=== PATIENT | male | born 1975 | race African-American/Black ===

== ENCOUNTER 2017-09-26 14:29 | Emergency (ER) | payer OTHER ==
[2017-09-26 14:36] VITALS: TEMP 98.5; BMI 36.9
--- NOTE | 2017-09-26 15:43 | PDOC ---
History of Present Illness - General Chief Complaint: Bleeding from Anus Stated Complaint: BLEEDING Time Seen by Provider: 09/26/17 14:44 History Source: Patient - History of Present Illness Timing/Duration: reports: resolved prior to arrival, other (this am) Past History - Past Medical History Allergies/Adverse Reactions: Allergies Allergy/AdvReac Type Severity Reaction Status Date / Time No Known Allergies Allergy Verified 09/26/17 14:34 Home Medications: Ambulatory Orders Clotrimazole/Betamethasone Dip [Lotrisone Lotion] 30 ml TP TID #1 bottle No Home Medications 0 mg PO DAILY 07/19/13 COPD: No - Suicide/Smoking/Psychosocial Hx Smoking History: Never smoked Have you smoked in the past 12 months: No Information on smoking cessation initiated: No Hx Alcohol Use: No Drug/Substance Use Hx: No Substance Use Type: None Review of Systems - Review of Systems Constitutional: No: Fever, Malaise, Weakness ABD/GI: Yes: Blood Streaked Bowels, Rectal Bleeding. No: Constipated, Diarrhea , Nausea, Vomiting, Abdominal cramping, Tarry Stools : No: Dysuria *Physical Exam - Vital Signs Last Vital Signs Temp Pulse Resp BP Pulse Ox 98.5 F 98 H 18 134/90 96 09/26/17 14:34 09/26/17 14:34 09/26/17 14:34 09/26/17 14:34 09/26/17 14:34 - Physical Exam General Appearance: Yes: Appropriately Dressed. No: Apparent Distress HEENT: positive: Normal Voice Neck: positive: Supple Respiratory/Chest: negative: Respiratory Distress Gastrointestinal/Abdominal: positive: Normal Bowel Sounds, Soft. negative: Tender Rectal Exam: positive: other (trace brown stool in vault, guaiac neg) Integumentary: positive: Dry, Warm Neurologic: positive: Fully Oriented, Alert, Normal Mood/Affect ED Treatment Course - LABORATORY CBC & Chemistry Diagram: 09/26/17 16:50 09/26/17 16:50 Medical Decision Making - Medical Decision Making 09/26/17 15:40 42-year-old male, no significant history here with 1 episode of bright blood per rectum this a.m. Patient states he noticed "a lot of blood" in toilet after having a bowel movement this morning. States he was not straining or constipated. Has not had another event since. No abdominal pain, diarrhea. nausea, vomiting or weakness. States he had a similar episode several years ago and had negative CT scan at [facility]. Has never been told he was anemic. Se exa, 1 e/o BRPR this am, since resolved Recurrent, had neg w/u in past at OSH No constipation, abd pain, n/v/f/c Not on blood thinners Sable and well maldonado w/ benign abd and giaiac neg trace brown stool in vault w/ no obvious hemorrhoid/fissure seen -will check basic labs -anticipate dc w/ GI f/u *DC/Admit/Observation/Transfer Diagnosis at time of Disposition: BRBPR (bright red blood per rectum) - Discharge Dispostion Condition at time of disposition: Good - Referrals Referrals: Hugo Bell MD [Staff Physician] - - Patient Instructions Printed Discharge Instructions: DI for Rectal Bleeding Additional Instructions: The cause of your symptoms are unclear at this time as your exam and labs were normal. However, you will need further evaluation by a director of industrial relations. Please follow-up with Dr. Bell of GI. If symptoms worsen, return to ER - Post Discharge Activity
[2017-09-26 17:01] LABS: BASO % 1.2 % (0-2.0); EOS % 3.5 % (0-4.5); HEMOGLOBIN 14.3 GM/dL (11.7-16.9); LYMPH % 32.1 % (8-40); MCH 29.5 pg (25.7-33.7); MCHC 33.3 g/dl (32.0-35.9); MEAN CELL VOLUME 88.5 fl (80-96); MONO % 8.8 % (3.8-10.2); NEUT % 54.4 % (42.8-82.8); PLATELET COUNT 232 K/MM3 (134-434); RBC 4.86 M/mm3 (4.00-5.60); RDW 13.3 % (11.9-15.9); WHITE BLOOD COUNT 4.5 K/mm3 (4.0-10.0)
[2017-09-26 17:23] LABS: ALBUMIN 3.9 g/dl (3.4-5.0); ALK PHOS 85 U/L (45-117); ANION GAP 6 (8-16); BILIRUBIN,TOTAL 0.9 mg/dL (0.2-1.0); BLOOD UREA NITROGEN 15 mg/dL (7-18); CHLORIDE 105 mmol/L (98-107); CO2 29 mmol/L (21-32); CREATININE 1.1 mg/dL (0.7-1.3); GLUCOSE,RANDOM 95 mg/dL (74-106); POTASSIUM 4.2 mmol/L (3.5-5.1); SGOT/AST 20 U/L (15-37); SGPT/ALT 30 U/L (12-78); SODIUM 140 mmol/L (136-145)
[2017-09-26 17:52] VITALS: BP 135/79; PULSE 83
== END 2017-09-26 17:49 | disposition home or self-care (01) ==
LOC: JER 14:29
DX: K62.5 Hemorrhage of anus and rectum (principal)
CPT/HCPCS: 36415; 80053; 82272; 85025; 99282-25

== ENCOUNTER 2017-10-04 16:17 | Emergency (ER) | payer OTHER ==
[2017-10-04 16:34] VITALS: BP 145/85; PULSE 83; TEMP 98.6; BMI 36.9
--- NOTE | 2017-10-04 18:07 | PDOC ---
History of Present Illness - General Chief Complaint: Rectal Bleed Stated Complaint: RECTAL BLEEDING Time Seen by Provider: 10/04/17 18:07 History Source: Patient Exam Limitations: No Limitations - History of Present Illness Initial Comments: 10/04/17 19:20 42M with no PMH presents to the ED with a chief complaint of rectal bleeding. Patient states he was seen here on 09/26/17 and had his blood work tested and was sent home with GI follow up. When he called to make an appointment he states he hasn't been able to make an appointment until for about 6-8 weeks out. He continues to have bleeding per rectum with both dark and bright blood. He reports occasional small clots. He states he is starting to have some dizziness and some lightheadedness especially when he stands for prolonged periods of time.He also reports occasional blurry vision. He has been able to eat and drink. He reports some mild bilateral lower quadrant abdominal pain. for the past few days he has been having lower back pain. He denies urinary symptoms. He denies anal penetration. He occasional has diarrhea and constipation. He denies rectal pain or a family history of GI bleeds or GI cancers. He denies any medication use or over the counter NSAIDs use. Past History - Travel Traveled outside of the country in the last 30 days: No - Past Medical History Allergies/Adverse Reactions: Allergies Allergy/AdvReac Type Severity Reaction Status Date / Time No Known Allergies Allergy Verified 10/04/17 16:32 Home Medications: Ambulatory Orders Clotrimazole/Betamethasone Dip [Lotrisone Lotion] 30 ml TP TID #1 bottle No Home Medications 0 mg PO DAILY 07/19/13 COPD: No - Suicide/Smoking/Psychosocial Hx Smoking History: Never smoked Have you smoked in the past 12 months: No Hx Alcohol Use: No Drug/Substance Use Hx: No Substance Use Type: None Review of Systems - Review of Systems Able to Perform ROS?: Yes Is the patient limited Azerbaijani proficient: No Constitutional: No: Symptoms Reported, See HPI, Chills, Diaphoresis, Fever, Loss of Appetite, Malaise, Night Sweats, Weakness, Weight Stable, Unintentional Wgt. Loss, Unexplained wgt Loss, Other HEENTM: Yes: Blurred Vision Respiratory: No: Symptoms reported, See HPI, Cough, Orthopnea, Shortness of Breath, SOB with Exertion, SOB at Rest, Stridor, Wheezing, Productive cough, Hemoptysis, Other Cardiac (ROS): No: Symptoms Reported, See HPI, Chest Pain, Edema, Irregular Heart Rate, Lightheadedness, Palpitations, Syncope, Chest Tightness, Other ABD/GI: Yes: Constipated, Diarrhea, Rectal Bleeding : Yes: Flank Pain Musculoskeletal: Yes: Back Pain (lower) Integumentary: No: Symptoms Reported, See HPI, Bruising, Change in Color, Change in Hair/Nails, Dryness, Erythema, Flushing, Lesions, Lumps, Pallor, Pruritus, Rash, Sweating, Other Neurological: Yes: Dizziness, Other (lightheadness) Psychiatric: No: Anxiety, Depression, Frequent Crying, Stressors, Sleep Pattern Change, Emotional Problems, Mood Swings, Change in Appetite, Other Endocrine: No: Symptoms Reported, See HPI, Excessive Sweating, Flushing, Intolerance to Cold, Intolerance to Heat, Increased Hunger, Increased Thirst, Increased Urine, Unexplained Weight Gain, Unexplained Weight Loss, Change in Weight, Other *Physical Exam - Vital Signs Last Vital Signs Temp Pulse Resp BP Pulse Ox 98.6 F 83 18 145/85 97 10/04/17 16:32 10/04/17 16:32 10/04/17 16:32 10/04/17 16:32 10/04/17 16:32 - Physical Exam General Appearance: Yes: Nourished, Appropriately Dressed, Obese. No: Apparent Distress HEENT: positive: EOMI. negative: Pale Conjunctivae Neck: positive: Trachea midline, Supple Respiratory/Chest: positive: Lungs Clear, Normal Breath Sounds. negative: Accessory Muscle Use Cardiovascular: positive: Regular Rhythm, Regular Rate, S1, S2 Gastrointestinal/Abdominal: positive: Flat, Tenderness (mild tenderness to palpation ), Other (mild suprapubic tenderness) Rectal Exam: positive: NL Prostate, normal rectal tone, other (brown stool. formed stool in vault. no external hemmorhoids ) Musculoskeletal: positive: CVA Tenderness, CVA Tenderness (R) (mild), CVA Tenderness (L) (mild) Extremity: negative: Tender Integumentary: positive: Dry, Warm Neurologic: positive: special population paraprofessional II-XII NML intact, Fully Oriented, Alert, Motor Strength 07/03 ED Treatment Course - LABORATORY CBC & Chemistry Diagram: 10/04/17 19:00 10/04/17 19:00 Medical Decision Making - Medical Decision Making 10/04/17 19:38 42M with no significant PMH presents with bleeding per rectum. Likely lower GI bleed. Patient also has flank pain and mild suprapubic tenderness. Will do: CBC CMP Stool for occult blood type and screen coags 1 liter normal saline bolus UA UCx reassess 10/04/17 20:23 labs noted no acute process. labs WNL H/H on 09/26/2017 was 14.3 and today it is 14.3 *DC/Admit/Observation/Transfer Diagnosis at time of Disposition: BRBPR (bright red blood per rectum), GI bleed - Discharge Dispostion Disposition: HOME Condition at time of disposition: Improved Decision to Admit order: No - Referrals Referrals: Bill Upton MD [Staff Physician] - Richard Spence MD [Staff Physician] - Danika Prince DO [Staff Physician] - Ye Maldonado DO [Staff Physician] - Airam Britt MD [Staff Physician] - Laci Grover RES [Emergency Midlevel Provider] - Call tomorrow (Please call . you can see me Dr. Grover for primary care at [address] [place] [address] 1st floor. I am there every 1-430pm. I can help facilitate an appointment with a maintenance manager. ) - Patient Instructions Printed Discharge Instructions: DI for Hemorrhoids, DI for Rectal Bleeding Additional Instructions: Go to the nearest emergency room if you have massive bleeding with bright red blood and/or clots. If you start to have severe cramping abdominal pain go to the nearest emergency room. Continue to hydrate yourself. Please make an appointment to see a primary care doctor. I have given you about 5 different gastroenterologists to call and make an appointment. you may need a colonoscopy and/or upper endoscopy for further evaluation. - Post Discharge Activity
[2017-10-04] MEDS ORDERED: SODIUM CHLORIDE 1,000 ML IV STA (18:52)
[2017-10-04 19:49] LABS: ALBUMIN 3.7 g/dl (3.4-5.0); ALK PHOS 86 U/L (45-117); ANION GAP 6 (8-16); BILIRUBIN,TOTAL 0.8 mg/dL (0.2-1.0); BLOOD UREA NITROGEN 11 mg/dL (7-18); CALCIUM 9.4 mg/dL (8.5-10.1); CHLORIDE 104 mmol/L (98-107); CO2 30 mmol/L (21-32); CREATININE 1.1 mg/dL (0.7-1.3); GLUCOSE,RANDOM 101 mg/dL (74-106); SGPT/ALT 32 U/L (12-78); SODIUM 140 mmol/L (136-145); TOT PROT 7.8 g/dl (6.4-8.2)
[2017-10-04 19:51] LABS: POTASSIUM 4.5 mmol/L (3.5-5.1)
[2017-10-04 19:52] LABS: SGOT/AST 25 U/L (15-37)
[2017-10-04 20:07] LABS: BASO % 0.6 % (0-2.0); EOS % 4.5 % (0-4.5); HEMATOCRIT 43.8 % (35.4-49); HEMOGLOBIN 14.3 GM/dL (11.7-16.9); LYMPH % 36.1 % (8-40); MCH 29.3 pg (25.7-33.7); MCHC 32.8 g/dl (32.0-35.9); MEAN CELL VOLUME 89.3 fl (80-96); MEAN PLT VOLUME 9.1 fl (7.5-11.1); MONO % 9.8 % (3.8-10.2); PLATELET COUNT 240 K/MM3 (134-434); RDW 13.2 % (11.9-15.9); WHITE BLOOD COUNT 3.6 K/mm3 (4.0-10.0)
[2017-10-04 20:08] LABS: URINE APPEARANCE CLEAR; URINE BILIRUBIN NEGATIVE (<2.0 mg/dL); URINE COLOR LTYELLOW; URINE GLUCOSE (UA) NEGATIVE (NEGATIVE); URINE KETONE NEGATIVE (NEGATIVE); URINE LEUK ESTERASE NEGATIVE (NEGATIVE); URINE NITRITE NEGATIVE (NEGATIVE); URINE PROTEIN NEGATIVE (NEGATIVE); URINE UROBILINOGEN NEGATIVE mg/dL (0.2-1.0)
--- NOTE | 2017-10-04 20:25 | PDOC ---
Attending Attestation - HPI HPI: 10/04/17 20:25 The patient is a 42 year old male, with no significant past medical history, who presents to the emergency department with bright red blood per rectum for a couple of days. The patient denies chest pain, shortness of breath, headache and dizziness. The patient denies fever, chills, nausea, vomit, diarrhea and constipation.The patient denies dysuria, frequency, urgency and hematuria. Allergies: NKDA Past surgical history: none reported Social history: Denies tobacco and ETOH. - Physicial Exam PE: 10/04/17 20:28 GENERAL: Well-appearing, well-nourished. No apparent distress. HEENT: Normocephalic, atraumatic. PERRL, EOM intact. CARDIOVASCULAR: Normal S1, S2. Regular rate and rhythm. PULMONARY: Clear to auscultation bilaterally. ABDOMEN: Soft, non-distended, non-tender. EXTREMITIES: Normal ROM in all four extremities. No gross deformities. SKIN: Warm, dry. No rash NEUROLOGICAL: No focal neurological deficits. RECTAL: Deferred to Dr. Laci Grover. - Medical Decision Making 10/04/17 20:26 Documentation prepared by Tyesha Rainey, acting as esthetician and manager medical spa for Sonia Agustin MD <Tyesha Rainey - Last Filed: 10/04/17 20:28> - Resident Resident Name: Laci Grover - ED Attending Attestation I have performed the following: I have examined & evaluated the patient, The case was reviewed & discussed with the resident, I agree w/resident's findings & plan, Exceptions are as noted - Medical Decision Making 10/05/17 03:04 pt is not anemic and thereisn changein his hbg or hct plan follow as outpt with GI <Sonia Agustin - Last Filed: 10/05/17 03:05>
== END 2017-10-04 20:54 | disposition home or self-care (01) ==
LOC: JER 16:17
PROC: 3E0337Z Introduction of Electrolytic and Water Balance Substance into Peripheral Vein, Percutaneous Approach (ICD-10-PCS; principal; 2017-10-04)
DX: K92.2 Gastrointestinal hemorrhage, unspecified (principal)
CPT/HCPCS: 36415; 80053; 81003; 82272; 83735; 85025; 86850; 86900; 86901; 87077; 87086; 99282-25; J7030

== ENCOUNTER 2018-02-01 09:41 | Emergency (ER) | payer OTHER ==
[2018-02-01 09:58] VITALS: BP 143/99; PULSE 89; TEMP 98.5; BMI 35.8
--- NOTE | 2018-02-01 11:35 | PDOC ---
History of Present Illness - General Chief Complaint: Back Pain Stated Complaint: PAIN,RT LEG,BACK Time Seen by Provider: 02/01/18 11:02 - History of Present Illness Initial Comments: 02/01/18 11:31 43-year-old male with lower back pain and right posterior lateral leg radicular symptoms 3 days without systemic symptoms loss of bowel bladder function or saddle paresthesias Past History - Past Medical History Allergies/Adverse Reactions: Allergies Allergy/AdvReac Type Severity Reaction Status Date / Time No Known Allergies Allergy Verified 02/01/18 09:56 Home Medications: Ambulatory Orders No Home Medications 0 mg PO DAILY 07/19/13 Cyclobenzaprine HCl [Flexeril 10 mg] 10 mg PO HS PRN #10 tablet 02/01/18 Methylprednisolone [Medrol Dose Marcelo] 4 mg PO ASDIR #21 tablet 02/01/18 COPD: No - Immunization History Immunization Up to Date: Yes - Suicide/Smoking/Psychosocial Hx Smoking History: Never smoked Have you smoked in the past 12 months: No Hx Alcohol Use: No Drug/Substance Use Hx: No Substance Use Type: None Review of Systems - Review of Systems Constitutional: No: Fever Musculoskeletal: Yes: Back Pain Neurological: Yes: See HPI, Tingling *Physical Exam - Vital Signs Last Vital Signs Temp Pulse Resp BP Pulse Ox 98.5 F 89 18 143/99 97 02/01/18 09:57 02/01/18 09:57 02/01/18 09:57 02/01/18 09:57 02/01/18 09:57 - Physical Exam Comments: 02/01/18 11:32 Range of motion slightly limited. There is diffused paralumbar musculature spasm and tenderness. 5 out of 5 strength in bilateral lower extremities without gross sensorimotor deficits. Positive straight leg raise test on the right negative on the left thighs and calves are soft and nontender. He is neurovascularly intact Moderate Sedation - Procedure Monitoring Vital Signs: Procedure Monitoring Vital Signs Temperature 98.5 F 02/01/18 09:57 Pulse Rate 89 02/01/18 09:57 Respiratory Rate 18 02/01/18 09:57 Blood Pressure 143/99 02/01/18 09:57 O2 Sat by Pulse Oximetry (%) 97 02/01/18 09:57 *DC/Admit/Observation/Transfer Diagnosis at time of Disposition: Lumbar radicular pain - Discharge Dispostion Disposition: HOME Condition at time of disposition: Stable Decision to Admit order: No - Prescriptions Prescriptions: Cyclobenzaprine HCl [Flexeril 10 mg] 10 mg PO HS PRN #10 tablet PRN Reason: Muscle Spasms Methylprednisolone [Medrol Dose Marcelo] 4 mg PO ASDIR #21 tablet - Referrals Referrals: Hong Welsh MD [Staff Physician] - - Patient Instructions Printed Discharge Instructions: Lumbar Radiculopathy, DI for Lumbar Radiculopathy Additional Instructions: Please take the steroid pack as directed. The muscle relaxer will make you sleepy it's one tablet before bedtime. If he need any other medications on top of that for pain you may take Tylenol. Do not take any anti-inflammatory such as Advil Motrin Aleve or ibuprofen. Follow-up with spine surgery in 2-3 days for further evaluation and treatment options and return to the emergency room should symptoms worsen or go unresolved. - Post Discharge Activity
== END 2018-02-01 11:52 | disposition home or self-care (01) ==
LOC: JERFT 09:41
DX: M54.16 Radiculopathy, lumbar region (principal)
CPT/HCPCS: 99281-25

== ENCOUNTER 2019-03-04 14:28 | Emergency (ER) | payer OTHER ==
[2019-03-04 14:37] VITALS: BP 126/85; PULSE 104; TEMP 98.5; BMI 383.6
[2019-03-04] MEDS ORDERED: IBUPROFEN 600 MG TABLET (FP) PO ONE ×2 (16:07→16:27)
--- NOTE | 2019-03-04 16:07 | PDOC ---
History of Present Illness - General Chief Complaint: Injury Stated Complaint: ANKLE PAIN Time Seen by Provider: 03/04/19 16:03 History Source: Patient - History of Present Illness Initial Comments: 03/04/19 16:10 Chief complaint: Left ankle injury Patient is a 44-year-old male who denies any medical problems who states that he rolled his ankle yesterday and is painful. Denies any other injuries. Did not take pain medicine. GENERAL/CONSTITUTIONAL: No fever, weakness. dizziness HEAD, EYES, EARS, NOSE AND THROAT: No change in vision. No ear pain or discharge. No sore throat. CARDIOVASCULAR: No chest pain RESPIRATORY: No shortness of breath or cough GASTROINTESTINAL: No pain, nausea, vomiting, diarrhea or constipation GENITOURINARY: No dysuria MUSCULOSKELETAL: No neck or back pain, + left ankle SKIN: No rash NEUROLOGIC: No headache, vertigo, loss of consciousness, or loss of sensation. GENERAL: The patient is awake, alert, and fully oriented, in no acute distress. HEAD: Normal with no signs of trauma. EYES: Pupils equal, round and reactive to light, sclera anicteric, conjunctiva clear. ENT: pharynx: no erythema, no exudate, uvula midline NECK: supple CHEST: clear, nontender, rr ABD: soft, nontender BACK: no tenderness or signs of injury EXTREMITIES: Left ankle with mild tenderness on the medial aspect, no gross swelling or deformity, foot has no tenderness or swelling, neurovascular intact. Rest of extremities, normal range of motion, no edema. NEUROLOGICAL: Normal speech, limping SKIN: Warm, Dry Past History - Past Medical History Allergies/Adverse Reactions: Allergies Allergy/AdvReac Type Severity Reaction Status Date / Time No Known Allergies Allergy Verified 03/04/19 14:34 Home Medications: Ambulatory Orders No Home Medications 0 mg PO DAILY 07/19/13 Cyclobenzaprine HCl [Flexeril 10 mg] 10 mg PO HS PRN #10 tablet 02/01/18 Methylprednisolone [Medrol Dose Marcelo] 4 mg PO ASDIR #21 tablet 02/01/18 COPD: No - Immunization History Immunization Up to Date: Yes - Psycho Social/Smoking Cessation Hx Smoking History: Never smoked Have you smoked in the past 12 months: No Hx Alcohol Use: No Drug/Substance Use Hx: No Substance Use Type: None *Physical Exam - Vital Signs Last Vital Signs Temp Pulse Resp BP Pulse Ox 98.5 F 104 H 18 126/85 95 03/04/19 14:35 03/04/19 14:35 03/04/19 14:35 03/04/19 14:35 03/04/19 14:35 Procedures - Splinting Splint Location: Left: Ankle Pre-Proc Neuro Vasc Exam: normal Pre-Made Type: aircast Post-Proc Neuro Vasc Exam: normal [place] Bandage: no Sling: No Complications: No Medical Decision Making - Medical Decision Making 03/04/19 16:11 44-year-old male without any medical problems who injured his ankle yesterday. Will x-ray. Will give patient Motrin and reassess. X-ray shows questionable old versus new chip at the base of the fibula, no other findings. will put an Aircast and have follow-up with Ortho Discussed issues, findings, results, applicable medications and treatments and follow-up. All these were understood and all questions were answered 03/04/19 16:21 Discharge - Discharge Information Problems reviewed: Yes Clinical Impression/Diagnosis: Injury of ankle, left Qualifiers: Encounter type: initial encounter Qualified Code(s): S99.912A - Unspecified injury of left ankle, initial encounter Condition: Stable Disposition: HOME - Admission No - Follow up/Referral Referrals: Vincent Ivy DO [Staff Physician] - - Patient Discharge Instructions Patient Printed Discharge Instructions: DI for Ankle Pain Additional Instructions: Elevate, wear splint You can apply ice for 20 minutes every 2 hours for the next 1 day Motrin 600 mg every 6 hours for pain. Call the orthopedist tomorrow - Post Discharge Activity
== END 2019-03-04 16:36 | disposition home or self-care (01) ==
LOC: JERFT 14:28
PROC: 2W3RX1Z Immobilization of Left Lower Leg using Splint (ICD-10-PCS; principal; 2019-03-04)
DX: S99.812A Other specified injuries of left ankle, initial encounter (principal); X50.1XXA Overexertion from prolonged static or awkward postures, initial encounter; Y93.89 Activity, other specified; Y92.89 Other specified places as the place of occurrence of the external cause; Y99.8 Other external cause status
CPT/HCPCS: 29515; 73610-TC-LT-FY; 99282-25

== ENCOUNTER 2020-03-23 14:17 | Emergency (ER) | payer OTHER ==
[2020-03-23 14:28] VITALS: BMI 37.5
[2020-03-23] MEDS ORDERED: SODIUM CHLORIDE 0.9% 500 ML INFUS.BAG IV ONE (17:35)
[2020-03-23] MEDS ORDERED: ONDANSETRON 4 MG/2 ML VIAL IVPUSH ONE (17:35)
[2020-03-23] MEDS ORDERED: ONDANSETRON 4 MG/2 ML VIAL ONE (17:42)
[2020-03-23 17:53] LABS: BASO % 0.6 % (0-2.0); EOS % 4.4 % (0-4.5); MCH 30.3 pg (25.7-33.7); MCHC 33.4 g/dl (32.0-35.9); MEAN CELL VOLUME 90.7 fl (80-96); MEAN PLT VOLUME 8.6 fl (7.5-11.1); MONO % 9.8 % (3.8-10.2); NEUT % 61.2 % (42.8-82.8); PLATELET COUNT 228 K/MM3 (134-434); RBC 4.96 M/mm3 (4.00-5.60); RDW 12.9 % (11.9-15.9); WHITE BLOOD COUNT 4.9 K/mm3 (4.0-10.0)
[2020-03-23 17:58] LABS: URINE APPEARANCE CLEAR; URINE BILIRUBIN NEGATIVE (NEGATIVE); URINE COLOR YELLOW; URINE GLUCOSE (UA) NEGATIVE (NEGATIVE); URINE KETONE TRACE (NEGATIVE); URINE LEUK ESTERASE NEGATIVE (NEGATIVE); URINE NITRITE NEGATIVE (NEGATIVE); URINE PROTEIN NEGATIVE (NEGATIVE)
[2020-03-23 18:25] LABS: POTASSIUM 4.4 mmol/L (3.5-5.1)
[2020-03-23 18:27] LABS: ALBUMIN 3.8 g/dl (3.4-5.0); CALCIUM 9.1 mg/dL (8.5-10.1)
[2020-03-23 18:30] LABS: CREATININE 1.1 mg/dL (0.55-1.3)
[2020-03-23 18:32] LABS: BILIRUBIN,TOTAL 1.2 mg/dL (0.2-1); TOT PROT 7.9 g/dl (6.4-8.2)
[2020-03-23] MEDS ORDERED: ACETAMINOPHEN 325 MG TABLET (FP) PO ONE (22:18)
[2020-03-23] MEDS ORDERED: CIPROFLOXACIN 500 MG TABLET (RESTRICTED TO ID) PO ONE (22:28)
[2020-03-23] MEDS ORDERED: metroNIDAZOLE 500 MG TABLET PO ONE (22:28)
[2020-03-23] MEDS ORDERED: KETOROLAC TROMETHAMINE 15 MG/ML VIAL IVPUSH ONE (22:29)
[2020-03-23] MEDS ORDERED: metroNIDAZOLE 250 MG TABLET ONE (22:41)
[2020-03-23] MEDS ORDERED: ACETAMINOPHEN 325 MG TABLET (FP) ONE (22:41)
[2020-03-23] MEDS ORDERED: KETOROLAC TROMETHAMINE 15 MG/ML VIAL ONE (22:41)
[2020-03-23 22:59] VITALS: BP 132/92; PULSE 86; TEMP 98
== END 2020-03-23 22:59 | disposition home or self-care (01) ==
LOC: JER 14:17
PROC: 3E0333Z Introduction of Anti-inflammatory into Peripheral Vein, Percutaneous Approach (ICD-10-PCS; principal; 2020-03-23)
PROC: 3E033GC Introduction of Other Therapeutic Substance into Peripheral Vein, Percutaneous Approach (ICD-10-PCS; 2020-03-23)
DX: K57.92 Diverticulitis of intestine, part unspecified, without perforation or abscess without bleeding (principal)
CPT/HCPCS: 36415; 74177-TC; 80053; 81003; 83735; 85025; 87086; 93005; 93010; 99285-25; Q9967

== ENCOUNTER 2020-06-24 09:30 | Emergency (ER) | payer OTHER ==
[2020-06-24 09:54] VITALS: BMI 36.9
[2020-06-24 11:16] VITALS: BP 142/97; PULSE 79; TEMP 97.3
== END 2020-06-24 11:27 | disposition home or self-care (01) ==
LOC: JER 09:30 → JERFT 09:30 → JER 11:27
DX: S90.812A Abrasion, left foot, initial encounter (principal); R03.0 Elevated blood-pressure reading, without diagnosis of hypertension
CPT/HCPCS: 99283-25

== ENCOUNTER 2020-06-26 08:27 | Emergency (ER) | payer OTHER ==
[2020-06-26 08:48] VITALS: BP 140/76; PULSE 93; TEMP 98.3; BMI 36.9
[2020-06-26] MEDS ORDERED: IBUPROFEN 400 MG TABLET (FP) PO ONE ×3 (09:46→09:55)
== END 2020-06-26 10:31 | disposition home or self-care (01) ==
LOC: JER 08:27
DX: S90.812A Abrasion, left foot, initial encounter (principal); S90.811A Abrasion, right foot, initial encounter
CPT/HCPCS: 99284-25

== ENCOUNTER 2021-02-28 08:08 | Emergency (ER) | payer OTHER ==
[2021-02-28 08:10] VITALS: BP 137/86; PULSE 104; TEMP 98; BMI 36.9
[2021-03-03 17:08] LABS: SARS-CoV-2 NAA Detected (Not Detected)
== END 2021-02-28 09:15 | disposition home or self-care (01) ==
LOC: JER 08:08
DX: Z11.52 Encounter for screening for COVID-19 (principal)
CPT/HCPCS: 99283-25; C9803; U0003; U0005